=== PATIENT | male | born 1980 | race Caucasian/White ===

== ENCOUNTER 2016-11-20 17:05 | Inpatient (IN) | payer OTHER ==
[~2016-11-20] VITALS: Ht 180.3 cm; Wt 63.5 kg
[2016-11-20 17:49] LABS: BASOPHIL % 0.4 % (0-2); PLATELET COUNT 298 x10^3mcL (130-400); RED CELL DISTRIBUTION WIDTH 12.4 % (11.5-14.5)
[2016-11-20 18:01] LABS: CALCIUM 8.1 mg/dL (8.5-10.1); CARBON DIOXIDE 31.1 mmol/L (21-32); CHLORIDE SERUM 102 mmol/L (98-107); CREATININE SERUM 1.1 mg/dL (0.7-1.3); GFR1 > 60 mL/min; GLUCOSE SERUM 166 mg/dL (74-106); POTASSIUM SERUM 4.4 mmol/L (3.5-5.1); SODIUM SERUM 138 mmol/L (136-145)
[2016-11-20 18:06] LABS: ALBUMIN 3.4 g/dL (3.4-5.0); ALKALINE PHOSPHATASE 49 U/L (46-116); ALT/SGPT 14 U/L (16-63); AST/SGOT 13 U/L (15-37); BILIRUBIN TOTAL 0.46 mg/dL (0.20-1.00)
[2016-11-20 18:07] LABS: TOTAL PROTEIN, SERUM 6.1 g/dL (6.4-8.2)
[2016-11-20] MEDS ORDERED: MOT400 PO (18:48)
[2016-11-20] MEDS ORDERED: NOR10T PO (18:48)
[2016-11-20 19:54] LABS: MAGNESIUM 1.6 mg/dL (1.8-2.4)
[2016-11-20 20:08] LABS: PHOSPHOROUS 4.9 mg/dL (2.5-4.9)
[2016-11-20 20:09] LABS: CHOLESTEROL/HDL RATIO 1.9
[2016-11-20 20:19] LABS: T3 TOTAL 0.95 ng/mL
[2016-11-20 20:25] LABS: FREE THYROXINE INDEX 3.7 ug/dL (1.4-4.5); T4(THYROXINE) 10.5 ug/dL (4.7-13.3)
[2016-11-20 20:47] LABS: FREE T4 1.55 ng/dL (0.76-1.46)
[2016-11-20 20:53] LABS: microscopic required? NO; urine erythrocyte NEGATIVE (NEGATIVE)
[2016-11-20 21:03] LABS: BASOPHIL % 0.3 % (0-2); PLATELET COUNT 249 x10^3mcL (130-400); RED CELL DISTRIBUTION WIDTH 12.7 % (11.5-14.5)
[2016-11-20 21:06] LABS: AMPHETAMINE QUAL UR POSITIVE (NEG <=1000)
[2016-11-20 22:47] VITALS: BP 100/66
[2016-11-21 06:32] VITALS: BP 96/64
[2016-11-21 06:42] LABS: CALCIUM 7.8 mg/dL (8.5-10.1); CARBON DIOXIDE 28.1 mmol/L (21-32); CHLORIDE SERUM 106 mmol/L (98-107); CREATININE SERUM 0.9 mg/dL (0.7-1.3); GFR1 > 60 mL/min; GLUCOSE SERUM 124 mg/dL (74-106); MAGNESIUM 2.1 mg/dL (1.8-2.4); PHOSPHOROUS 4.5 mg/dL (2.5-4.9); POTASSIUM SERUM 4.6 mmol/L (3.5-5.1); SODIUM SERUM 140 mmol/L (136-145)
[2016-11-21 07:39] LABS: BASOPHIL % 0.3 % (0-2); PLATELET COUNT 273 x10^3mcL (130-400); RED CELL DISTRIBUTION WIDTH 12.8 % (11.5-14.5)
[2016-11-21 09:21] VITALS: BP 106/63
[2016-11-21 13:47] VITALS: BP 98/61
[2016-11-21 17:04] VITALS: BP 104/66
[2016-11-21 21:26] VITALS: BP 96/63
[2016-11-22 05:56] VITALS: BP 94/48
[2016-11-22 06:37] LABS: CALCIUM 7.5 mg/dL (8.5-10.1); CARBON DIOXIDE 29.1 mmol/L (21-32); CHLORIDE SERUM 107 mmol/L (98-107); CREATININE SERUM 0.9 mg/dL (0.7-1.3); GFR1 > 60 mL/min; GLUCOSE SERUM 106 mg/dL (74-106); MAGNESIUM 1.8 mg/dL (1.8-2.4); PHOSPHOROUS 3.1 mg/dL (2.5-4.9); POTASSIUM SERUM 3.8 mmol/L (3.5-5.1); SODIUM SERUM 142 mmol/L (136-145)
[2016-11-22 07:11] LABS: BASOPHIL % 0.7 % (0-2); PLATELET COUNT 215 x10^3mcL (130-400); RED CELL DISTRIBUTION WIDTH 12.6 % (11.5-14.5)
[2016-11-22 09:26] VITALS: BP 100/58
[2016-11-22 13:37] VITALS: BP 104/61
[2016-11-22 17:40] VITALS: BP 102/65
[2016-11-22 21:47] VITALS: BP 103/63
[2016-11-23 05:52] VITALS: BP 102/61
[2016-11-23 07:03] LABS: CALCIUM 7.3 mg/dL (8.5-10.1); CARBON DIOXIDE 27.3 mmol/L (21-32); CHLORIDE SERUM 108 mmol/L (98-107); CREATININE SERUM 0.8 mg/dL (0.7-1.3); GFR1 > 60 mL/min; GLUCOSE SERUM 114 mg/dL (74-106); MAGNESIUM 1.5 mg/dL (1.8-2.4); PHOSPHOROUS 3.4 mg/dL (2.5-4.9); POTASSIUM SERUM 3.3 mmol/L (3.5-5.1); SODIUM SERUM 142 mmol/L (136-145)
[2016-11-23 07:07] LABS: BASOPHIL % 0.5 % (0-2); PLATELET COUNT 225 x10^3mcL (130-400); RED CELL DISTRIBUTION WIDTH 12.7 % (11.5-14.5)
[2016-11-23 10:35] VITALS: BP 108/67
[2016-11-23 11:14] LABS: rbc morphology (normal/abnorm) ABNORMAL (NORMAL); tear drop cell (dacryocyte) 1+
[2016-11-23] MEDS ORDERED: FER300 PO (11:45)
[2016-11-23] MEDS ORDERED: OSCD PO (11:46)
[2016-11-23] MEDS ORDERED: LAC30L PO (11:46)
[2016-11-23] MEDS ORDERED: NOR10T PO (11:56)
[2016-11-23 12:05] VITALS: BP 108/67
== END 2016-11-23 13:31 | disposition home or self-care (01) | DRG 241 ==
LOC: ED 17:05 → DU 18:51
PROVIDERS: Emergency Medicine; Family Medicine; Internal Medicine Gastroenterology; ADMIT Family Medicine
PROC: 0DB68ZX Excision of Stomach, Via Natural or Artificial Opening Endoscopic, Diagnostic (ICD-10-PCS; principal; 2016-11-21 13:45)
DX: K26.7 Chronic duodenal ulcer without hemorrhage or perforation (principal); N17.0 Acute kidney failure with tubular necrosis; E83.42 Hypomagnesemia; E83.51 Hypocalcemia; D62 Acute posthemorrhagic anemia; M54.5 Low back pain; G89.29 Other chronic pain; R00.0 Tachycardia, unspecified; F17.200 Nicotine dependence, unspecified, uncomplicated; F15.10 Other stimulant abuse, uncomplicated; E87.6 Hypokalemia; Z79.1 Long term (current) use of non-steroidal anti-inflammatories (NSAID)
CPT/HCPCS: 43235; 80307; 83880; 84439; 90658; C9113; G0480; J1100; J1200; J1610; J2060; J2250; J2270; J2310; J3010; J3360; J3475; J3490; J7030

== ENCOUNTER 2017-10-09 12:03 | Inpatient (IN) | payer SELFPAY ==
[~2017-10-09] VITALS: Ht 180.3 cm; Wt 71.2 kg
[~2017-10-09 12:03] MED LIST: FER300 PO; LAC30L PO; MOT400 PO; NOR10T PO; OSCD PO
[2017-10-09 13:28] LABS: BASOPHIL % 0.5 % (0-2); PLATELET COUNT 300 x10^3mcL (130-400)
[2017-10-09 13:50] LABS: CALCIUM 8.3 mg/dL (8.5-10.1); CARBON DIOXIDE 33.2 mmol/L (21-32); CHLORIDE SERUM 101 mmol/L (98-107); CREATININE SERUM 0.9 mg/dL (0.7-1.3); GFR1 > 60 mL/min; GLUCOSE SERUM 103 mg/dL (74-106); POTASSIUM SERUM 3.7 mmol/L (3.5-5.1); SODIUM SERUM 140 mmol/L (136-145)
[2017-10-09 13:53] LABS: ALBUMIN 3.6 g/dL (3.4-5.0); ALKALINE PHOSPHATASE 65 U/L (46-116); ALT/SGPT 21 U/L (16-63); AMYLASE 29 U/L (25-115); AST/SGOT 14 U/L (15-37); BILIRUBIN TOTAL 0.6 mg/dL (0.20-1.00); LIPASE 153 IU/L (73-393); MAGNESIUM 1.8 mg/dL (1.8-2.4); TOTAL PROTEIN, SERUM 7.2 g/dL (6.4-8.2)
[2017-10-09 15:40] LABS: microscopic required? NO
[2017-10-09 15:55] LABS: UA SPECIFIC GRAVITY 1.015 (1.005-1.035); urine erythrocyte NEGATIVE (NEGATIVE)
[2017-10-09] MEDS ORDERED: PRILOSEC OTC20 M1 PO (16:07)
[2017-10-09 16:41] LABS: AMPHETAMINE QUAL UR POSITIVE (NEG <=1000)
[2017-10-09 16:58] VITALS: BP 116/73
[2017-10-09 17:00] VITALS: Ht 180.3 cm; Wt 71.2 kg
[2017-10-09 17:16] VITALS: BP 116/73
[2017-10-09 18:28] LABS: CHOLESTEROL/HDL RATIO 2.2; PHOSPHOROUS 3.2 mg/dL (2.5-4.9)
[2017-10-09 18:38] LABS: FREE T4 1.05 ng/dL (0.76-1.46); FREE THYROXINE INDEX 3.7 ug/dL (1.4-4.5); T4(THYROXINE) 9.2 ug/dL (4.7-13.3)
[2017-10-09 18:39] LABS: T3 TOTAL 0.91 ng/mL
[2017-10-09 21:04] VITALS: BP 100/63
[2017-10-10] VITALS (7 sets, daily range): BP systolic 97–142; BP diastolic 54–92
[2017-10-10 07:35] LABS: BASOPHIL % 0.4 % (0-2); PLATELET COUNT 261 x10^3mcL (130-400); RED CELL DISTRIBUTION WIDTH 12.9 % (11.5-14.5)
[2017-10-10 07:42] LABS: CARBON DIOXIDE 28.8 mmol/L (21-32); CHLORIDE SERUM 106 mmol/L (98-107); CREATININE SERUM 0.8 mg/dL (0.7-1.3); GFR1 > 60 mL/min; GLUCOSE SERUM 110 mg/dL (74-106); MAGNESIUM 1.8 mg/dL (1.8-2.4); PHOSPHOROUS 2.4 mg/dL (2.5-4.9); POTASSIUM SERUM 4.1 mmol/L (3.5-5.1); SODIUM SERUM 140 mmol/L (136-145)
[2017-10-11 05:10] VITALS: BP 110/80
[2017-10-11 06:35] LABS: BASOPHIL % 0.3 % (0-2); PLATELET COUNT 263 x10^3mcL (130-400); RED CELL DISTRIBUTION WIDTH 13.1 % (11.5-14.5)
[2017-10-11 06:53] LABS: CALCIUM 8.2 mg/dL (8.5-10.1); CARBON DIOXIDE 25.1 mmol/L (21-32); CHLORIDE SERUM 109 mmol/L (98-107); CREATININE SERUM 0.7 mg/dL (0.7-1.3); GFR1 > 60 mL/min; GLUCOSE SERUM 124 mg/dL (74-106); MAGNESIUM 1.8 mg/dL (1.8-2.4); PHOSPHOROUS 2.9 mg/dL (2.5-4.9); POTASSIUM SERUM 3.6 mmol/L (3.5-5.1); SODIUM SERUM 143 mmol/L (136-145)
[2017-10-11 09:03] VITALS: BP 107/81
[2017-10-11 13:03] VITALS: BP 116/74
[2017-10-11 17:09] VITALS: BP 138/88
[2017-10-11] MEDS ORDERED: BIA500 PO (17:58)
[2017-10-11] MEDS ORDERED: AMO500 PO (17:59)
[2017-10-11] MEDS ORDERED: ELA25 PO (18:03)
[2017-10-11] MEDS ORDERED: LIB25 PO (18:04)
[2017-10-11] MEDS ORDERED: COL100 PO (18:06)
[2017-10-11] MEDS ORDERED: SEN PO (18:06)
[2017-10-11] MEDS ORDERED: CAR1 PO (18:07)
[2017-10-11] MEDS ORDERED: PRI20 PO (18:07)
[2017-10-11] MEDS ORDERED: FOL1 PO (18:08)
[2017-10-11] MEDS ORDERED: THI100 PO (18:09)
[2017-10-11] MEDS ORDERED: THERAGRAN-M1 TA4 PO (18:10)
[2017-10-11] MEDS ORDERED: NIC14 TD (18:11)
[2017-10-11] MEDS ORDERED: FERROUS SULFAT325 M2 PO (18:12)
[2017-10-11] MEDS ORDERED: PHARMASSURE VI500 MG PO (18:13)
[2017-10-11 19:39] VITALS: BP 138/88
[2017-10-11 21:20] VITALS: BP 116/82
[2017-10-12 00:14] VITALS: BP 121/72
[2017-10-12 05:13] VITALS: BP 114/69
[2017-10-12 08:40] VITALS: BP 118/77
[2017-10-12 14:33] VITALS: BP 118/77
== END 2017-10-12 17:40 | disposition home or self-care (01) | DRG 377 ==
LOC: ED 12:03 → DU 15:51 → MU 15:51 → DU 16:43 → MU 10-12 08:46
PROVIDERS: Emergency Medicine; Family Medicine; Internal Medicine Gastroenterology; Student in an Organized Health Care Education/Training Program
PROC: 0DB68ZX Excision of Stomach, Via Natural or Artificial Opening Endoscopic, Diagnostic (ICD-10-PCS; principal; 2017-10-10 09:30)
PROC: 3E0G8GC Introduction of Other Therapeutic Substance into Upper GI, Via Natural or Artificial Opening Endoscopic (ICD-10-PCS; 2017-10-10 09:30)
DX: K26.4 Chronic or unspecified duodenal ulcer with hemorrhage (principal); N17.0 Acute kidney failure with tubular necrosis; K59.00 Constipation, unspecified; E83.39 Other disorders of phosphorus metabolism; E78.1 Pure hyperglyceridemia; F17.210 Nicotine dependence, cigarettes, uncomplicated; Z68.22 Body mass index [BMI] 22.0-22.9, adult; Z91.14 Patient's other noncompliance with medication regimen; Z83.3 Family history of diabetes mellitus
CPT/HCPCS: 43235; 82962; 83880; 84439; 99406; G0480; J0171; J1200; J1610; J1630; J1885; J2060; J2250; J2310; J2405; J2550; J3010; J3486; J3490; J7030; Q0092; Q9966; Q9967

== ENCOUNTER 2018-03-19 18:29 | Emergency (ER) | payer OTHER ==
[~2018-03-19] VITALS: Ht 180.3 cm; Wt 66.7 kg
[~2018-03-19 18:29] MED LIST changes: +AMO500 PO; +BIA500 PO; +CAR1 PO; +COL100 PO; +ELA25 PO; +FERROUS SULFAT325 M2 PO; +FOL1 PO; +LIB25 PO; +NIC14 TD; +PHARMASSURE VI500 MG PO; +PRI20 PO; +PRILOSEC OTC20 M1 PO; +SEN PO; +THERAGRAN-M1 TA4 PO; +THI100 PO
[2018-03-19 20:18] VITALS: BP 135/78
== END 2018-03-19 20:18 | disposition home or self-care (01) ==
LOC: ED 18:29
DX: L02.411 Cutaneous abscess of right axilla (principal); I10 Essential (primary) hypertension
CPT/HCPCS: J1885; J2001

== ENCOUNTER 2018-03-23 20:54 | Emergency (ER) | payer OTHER ==
[~2018-03-23] VITALS: Ht 180.3 cm; Wt 68.0 kg
[2018-03-23 21:01] VITALS: Ht 180.3 cm; Wt 68.0 kg
[2018-03-23 22:46] VITALS: BP 125/80
== END 2018-03-23 22:46 | disposition home or self-care (01) ==
LOC: ED 20:54
DX: Z48.01 Encounter for change or removal of surgical wound dressing (principal)